=== PATIENT | female | born 1955 | race American Indian/Alaskan Native ===

== ENCOUNTER 2016-05-25 11:21 | Outpatient (CLI) | payer OTHER ==
--- NOTE | 2016-05-25 12:50 | XRay Report ---
RIGHT FEMUR: History: Pain in right thigh. AP and lateral views of the femur demonstrate normal mineralization and contours for this patient's age. No destructive changes are noted and the adjacent soft tissues are normal. IMPRESSION: Unremarkable right femur.
--- NOTE | 2016-05-25 12:51 | XRay Report ---
LEFT KNEE, 2 VIEWS History: Polyarthritis, pain. Findings: There is mild joint space narrowing in the medial compartment. Mild tibial spine spurring is also identified. The lateral compartment and patellofemoral space are within normal limits. There is normal bone mineralization. No fracture or bone lesion. No joint effusion. Soft tissues are unremarkable. Impression: Mild osteoarthritic changes of the left knee as described. These findings appear appropriate for this persons age.
== END 2016-05-25 11:22 | disposition home or self-care (01) ==
LOC: XRAY 11:21
PROVIDERS: ATTEND Internal Medicine
DX: Z02.71 Encounter for disability determination (principal); M13.0 Polyarthritis, unspecified; M79.651 Pain in right thigh

== ENCOUNTER 2016-08-09 14:04 | Outpatient (CLI) | payer MEDICAID | END 2016-08-09 14:05 | disposition home or self-care (01) | LOC: VAS 14:04 | PROVIDERS: ATTEND General Practice | DX: M79.662 Pain in left lower leg (principal) ==